=== PATIENT | female | born 1975 | race Caucasian/White ===

== ENCOUNTER → 2020-07-26 | Outpatient (CLI) | payer OTHER ==
--- NOTE | 2020-07-26 12:03 | KCIC ---
MRI BRAIN WO History:Reason: PSEUDOTUMOR CEREBRI / Spl. Instructions: / History: Headache and head pressure. Dx s even yrs ago. Technique: Multiplanar, multi sequential MR imaging was performed of the brain without contrast. Comparison: CT March 12, 2016 Findings: No acute infarct. No intracranial hemorrhage. No mass effect. No hydrocephalus. Partially empty sella. Slight prominence of the CSF within the optic nerve sheaths. Small somewhat sl itlike ventricles, unchanged. Findings can be seen with intracranial hypertension in the appropriate clinical setting. Imaged orbits are unremarkable. Bilateral maxillary sinus because retention cysts or polyps, left gre ater than right. Mastoid air cells are clear. Impression: 1. No acute intracranial abnormality. 2. Findings suggestive of intracranial hypertension, unchanged. Electronically signed by: Tommy Quintero DO (07/26/2020 12:01 PM) [id number]
== END ==
LOC: KCIC MRI 09:15
PROVIDERS: ATTEND Nurse Practitioner Family
DX: G93.2 Benign intracranial hypertension (principal); R42 Dizziness and giddiness; R51.9 Headache, unspecified
CPT/HCPCS: 70551